=== PATIENT | male | born 1960 | race Caucasian/White ===

== ENCOUNTER 2020-03-02 15:00 | Emergency (ER) | payer OTHER ==
[~2020-03-02] VITALS: Ht 172.7 cm; Wt 74.0 kg
--- NOTE | 2020-03-02 15:39 | NUR ---
PATIENT BIB [facility] AFTER COMPLAINING OF 9/10 CP/ NITRO AND 325 ASPIRIN IN ROUTE. PAIN STILL 9/10. WHILE WAITING FOR ROOM STARTED STATING HE WANTED TO KILL HIMSELF. PATIENT IS ACTIVELY HALLUCINATING, HEARING VOICES TELLING HIM TO KILL HIMSELF. HE STATES "HE CAN'T WAIT TO GET OUT OF HERE SO HE CAN GO KILL HIMSELF." WHEN ASKED IF HE HAD A PLAN HE STATED HE WOULD JUMP IN FRONT OF TRAFFIC, SLIT HIS THROAT, SLIT HIS WRISTS, OR SHOOT HIMSELF. PATIENT IS IN A SECURE ROOM WITH A SITTER OUTSIDE DOOR WITHIN VIEW. WARM BLANKETS PROVIDED AND ALL BELONGINGS REMOVED AND LOCKED UP. PATIENT NORMALLY TAKES SEROQUEL AND PROZAC BUT HAS BEEN OFF THEM FOR ABOUT A MONTH.
[2020-03-02] MEDS ORDERED: ZIPRASIDONE 20 MG INJ IM ONE (16:00)
[2020-03-02 16:21] LABS: BASOPHILS % (AUTO) 1 % (0-1); EOSINOPHILS % (AUTO) 0 % (1-7); LYMPHOCYTES % (AUTO) 19 % (22-44); MEAN CORPUSCULAR HEMOGLOBIN 30.7 pg (27.5-34.5); MEAN CORPUSCULAR HGB CONC 32.9 g/dL (33.2-36.2); MEAN PLATELET VOLUME 7.3 fL (7.4-10.4); MONOCYTES % (AUTO) 8 % (2-9); NEUTROPHILS % (AUTO) 72 % (42-75); PLATELET COUNT 449 x10^3/uL (130-400); RED BLOOD COUNT 4.13 x10^6/uL (4.38-5.82); RED CELL DISTRIBUTION WIDTH 14.9 % (9.4-14.8)
[2020-03-02 16:28] LABS: MD NO
[2020-03-02 16:32] LABS: AMPHETAMINE SCREEN, URINE Positive (Negative); BARBITURATE SCREEN, URINE Negative (Negative); BENZODIAZEPINE SCREEN, URINE Negative (Negative); CANNABINOID SCREEN, URINE Positive (Negative); COCAINE SCREEN, URINE Negative (Negative); METHADONE SCREEN, URINE Negative (Negative); OPIATE SCREEN, URINE Negative (Negative)
[2020-03-02 16:34] LABS: ALANINE AMINOTRANSFERASE 24 U/L (12-78); ALBUMIN 3.4 g/dL (3.4-5.0); ANION GAP 7 mmol/L (5-15); CHLORIDE 112 mmol/L (98-107); CREATININE 0.96 mg/dL (0.7-1.3)
[2020-03-02 16:38] LABS: ALKALINE PHOSPHATASE 102 U/L (45-117); BILIRUBIN,TOTAL 0.3 mg/dL (0.2-1.0); SALICYLATE LEVEL 3.7 mg/dL (2.8-20.0); TROPONIN I < 0.015 ng/mL (0.000-0.045)
[2020-03-02] MEDS ORDERED: QUETIAPINE 25MG TABLET PO SCH (17:00)
[2020-03-02] MEDS ORDERED: FLUOXETINE 10 MG CAP ONE (17:06)
[2020-03-02] MEDS ORDERED: QUETIAPINE 25MG TABLET ONE (17:06)
[2020-03-02] MEDS: FLUOXETINE 10 MG CAP PO SCH (17:10)
--- NOTE | 2020-03-02 17:18 | NUR ---
PATIENTS BELONGINGS IN ONE BAG. ALTHOUGH HE STATES HE IS "TIRED AND WANTS TO KILL HIMSELF ANYWAY HE CAN" HE DOES NOT HAVE ACCESS TO ANY WEAPONS INCLUDING A GUN. MEAL TRAY ORDERED. SITTER OUTSIDE ROOM WITHIN VIEW.
--- NOTE | 2020-03-02 17:46 | NUR ---
PATIENT RESTING COMFORTABLY IN HOSPITAL BED IN A SAFETY ROOM WITH A SITTER OUTSIDE DOOR WITHIN VIEW. SAFETY DINNER TRAY PROVIDED. NO ADDITIONAL NEEDS AT THIS TIME.
--- NOTE | 2020-03-02 18:46 | NUR ---
VALERIA RN: PACKET FAXED TO [facility]
--- NOTE | 2020-03-02 18:50 | NUR ---
REPORT GIVEN TO LACEY DAVIS
--- NOTE | 2020-03-02 19:05 | NUR ---
PT IN BED, LIGHTS DIMMED. PT DENIES ANY CURRENT NEEDS OR CONCERNS, SITTER CONTINUES IN DIRECT LINE OF SIGHT.
--- NOTE | 2020-03-02 20:28 | NUR ---
PT FONDLING HIS GENITALIA IN PLAIN VIEW OF DOORWAY. VERBALLY REDIRECTED AND REMINDED TO KEEP HIS PRIVATE AREAS PRIVATE. PT VERBALLY AGREES AND APOLOGIZES AT THIS TIME. DENIES ANY FURTHER NEEDS OR CONCERNS. SITTER CONTINUES IN DIRECT LINE OF SIGHT.
[2020-03-02] MEDS: QUETIAPINE 100MG TABLET PO SCH (21:00)
[2020-03-02] MEDS ORDERED: QUETIAPINE 100MG TABLET ONE (21:05)
--- NOTE | 2020-03-02 22:32 | NUR ---
PT RESTING IN BED, EYES CLOSED, RESPIRATIONS EVEN AND UNLABORED. SITTER CONTINUES IN DIRECT LINE OF SIGHT.
--- NOTE | 2020-03-03 01:34 | NUR ---
PT RESTING IN BED, SITTER CONTINUES IN DIRECT LINE OF SIGHT.
--- NOTE | 2020-03-03 03:52 | NUR ---
PT RESTING, EYES CLOSED, RESPIRATIONS EVEN AND UNLABORED. NAD NOTED. SITTER IN DIRECT LINE OF SIGHT.
--- NOTE | 2020-03-03 04:37 | NUR ---
PT AWAKE IN BED, BUT SILENT. DENIES ANY NEEDS OR CONCERNS AT THIS TIME. SITTER CONTINUES IN DIRECT LINE OF SIGHT.
[2020-03-03] MEDS ORDERED: HALOPERIDOL 5 MG/ML ONE (06:19)
--- NOTE | 2020-03-03 06:40 | NUR ---
PT RESTING IN BED, EYES CLOSED, RESPIRATIONS EVEN AND UNLABORED. SITTER CONTINUES IN DIRECT LINE OF SIGHT.
--- NOTE | 2020-03-03 07:15 | NUR ---
Report received and care assumed. Pt in room lying on left side and awakens as soon as I enter. He asked if anyone was outside to get him and reassurances were made they were not and that he is in a safe place. He states he wants to kill himself, denies need for food, and is cold. Warm blanket provided and room cleaned of safety tray and empty milk carton. No other items beside bed and linens in room with pt and PSA and RN posted outside of room to continue to ensure pt safety from himself and falls.
[2020-03-03] MEDS ORDERED: QUETIAPINE 25MG TABLET PO SCH (08:00)
--- NOTE | 2020-03-03 09:50 | NUR ---
Pt up to bathroom with PSA yelling that he wants to kill himself. Walked back to room without further issue or escalation and provided breakfast tray.
--- NOTE | 2020-03-03 10:21 | NUR ---
Pt ate 100% of breakfast and tray removed/cleaned up room. Pt resting with lights dimmed without further c/o voiced at this time.
--- NOTE | 2020-03-03 10:37 | NUR ---
Psych staff from [facility] present at bedside for evaluation.
[2020-03-03] MEDS ORDERED: OLANZAPINE 5 MG TABLET ONE (11:09)
[2020-03-03] MEDS ORDERED: FLUOXETINE 10 MG CAP ONE (11:09)
[2020-03-03] MEDS: FLUOXETINE 10 MG CAP PO SCH (11:18)
[2020-03-03] MEDS: OLANZAPINE 5 MG TABLET PO SCH (11:18)
--- NOTE | 2020-03-03 13:13 | NUR ---
Pt resting quietly in room without complaint voiced. VS held until pt wakes up again.
--- NOTE | 2020-03-03 14:01 | NUR ---
Pt resting in room with head covered by blanket at this time, NAD noted and no changes from initial assessment noted.
--- NOTE | 2020-03-03 15:34 | NUR ---
Pt awake and provided crackers and juice for a snack as he slept through lunch. VS reassessed and found to be within baseline from shift earlier.
--- NOTE | 2020-03-03 16:50 | NUR ---
ED tray brought in to pt and new warm blanket provided per pt request.
--- NOTE | 2020-03-03 17:56 | NUR ---
All items from tray returned and disposed of. Pt ate 100% of meal tray. He states the voices "are getting worse." No PRN meds currently ordered. Will speak with MD regarding possible PRN medications.
--- NOTE | 2020-03-03 18:23 | NUR ---
Pt provided 2 apple juice cups at this time and updated to plan of care for PRN Ativan should he feel like he is going to escalate. Pt states understanding and agreement made to notify RN prior to escalation.
[2020-03-03] MEDS ORDERED: LORazepam 1MG TABLET PO PRN (18:30)
--- NOTE | 2020-03-03 18:57 | NUR ---
Report given to WEN, RN and care transferred.
--- NOTE | 2020-03-03 19:19 | NUR ---
Report received from RYAN Aguilar. This RN to assume care. Patient sleeping in hospital bed. Respirations even and unlabored. Room secured, belongings locked in cabinet. Sitter outside.
--- NOTE | 2020-03-03 20:10 | NUR ---
Patient resting in hospital bed with no complaints. Respirations even and unlabored. Room secured, belongings locked in cabinet. Sitter outside.
--- NOTE | 2020-03-03 21:40 | NUR ---
Patient resting in hospital bed with no complaints. Respirations even and unlabored. Room secured, belongings locked in cabinet. Sitter outside.
[2020-03-03] MEDS ORDERED: QUETIAPINE 100MG TABLET ONE (21:45)
[2020-03-03] MEDS: QUETIAPINE 100MG TABLET PO SCH (21:50)
--- NOTE | 2020-03-03 22:10 | NUR ---
Patient resting in hospital bed with no complaints. Respirations even and unlabored. Room secured, belongings locked in cabinet. Sitter outside.
--- NOTE | 2020-03-03 23:30 | NUR ---
Patient resting in hospital bed with no complaints. Respirations even and unlabored. Room secured, belongings locked in cabinet. Sitter outside.
--- NOTE | 2020-03-04 00:28 | NUR ---
Patient resting in hospital bed with no complaints. Respirations even and unlabored. Room secured, belongings locked in cabinet. Sitter outside.
--- NOTE | 2020-03-04 01:30 | NUR ---
Report to RYAN Fragoso. Patient care transferred.
--- NOTE | 2020-03-04 02:23 | NUR ---
PT RESTING IN BED WITH SITTER AT DOOR. PT IN SI SERCURED ROOM. PT HAS EQUAL AND UNLABORED BREATHING.
--- NOTE | 2020-03-04 03:26 | NUR ---
Break RN: Patient resting in hospital bed with no complaints. Respirations even and unlabored. Room secured, belongings locked in cabinet. Sitter outside.
--- NOTE | 2020-03-04 05:22 | NUR ---
PT RESTING IN BED WITH SITTER AT DOOR. PT IN SI SERCURED ROOM. PT HAS EQUAL AND UNLABORED BREATHING.
[2020-03-04] MEDS ORDERED: FLUOXETINE 10 MG CAP ONE (07:23)
[2020-03-04] MEDS ORDERED: OLANZAPINE 5 MG TABLET ONE (07:24)
[2020-03-04] MEDS ORDERED: LORazepam 2 MG/ML, 1ML ONE (07:25)
[2020-03-04] MEDS ORDERED: LORazepam 2 MG/ML, 1ML IM ONE (07:30)
[2020-03-04] MEDS: OLANZAPINE 5 MG TABLET PO SCH (07:44)
[2020-03-04] MEDS: FLUOXETINE 10 MG CAP PO SCH (07:44)
--- NOTE | 2020-03-04 07:46 | NUR ---
PT LEFT ROOM AND WALKED AROUND UNIT IN A DETERMINED MANNER. PT NOT LISTENING TO VERBAL DIRECTION. SECURITY WAS CALLED TO ASSIST PT BACK TO ROOM. PT BREATHING HEAVY AND FAST, HAS PULLED COVERS OVER FACE. WHEN ASKED PT WHY HE LEFT ROOM, PT STATED THERE ARE PEOPLE AFTER HIM. ERP MADE AWARE OF PT CURRENT CONDITION. ORDERS PLACED. PT COOPERATIVE WITH QUESTIONS AND VITALS. PT TOOK ORDERED MEDS. SITTER AT DOOR. WILL CONTINUE TO MONITOR.
--- NOTE | 2020-03-04 08:21 | NUR ---
PT RESTING CALMLY IN BED WITH EYES CLOSED. SITTER AT DOOR FOR OBS.
--- NOTE | 2020-03-04 09:31 | NUR ---
PT RESTING CALMLY IN BED. NO STATED NEEDS AT THIS TIME. SITTER AT DOOR FOR OBS.
--- NOTE | 2020-03-04 10:32 | NUR ---
PT RESTING IN BED WITH EYES CLSOED. PT MOVING AROUND IN BED, RESPS EVEN. SITTER AT DOOR FOR OBS.
--- NOTE | 2020-03-04 11:11 | NUR ---
PT RESTING CALMLY IN BED AT THIS TIME. PT DID EAT MEAL TRAY. NO STATED NEEDS FROM PT AT THIS TIME. WILL CONTINUE TO MONITOR.
--- NOTE | 2020-03-04 12:02 | NUR ---
PT RESTING CALMLY IN BED. NO STATED NEEDS AT THIS TIME. SITTER AT DOOR.
--- NOTE | 2020-03-04 13:07 | NUR ---
meal tray has been given to pt. pt still resting calmly in bed with eyes closed. sitter at door.
--- NOTE | 2020-03-04 13:37 | NUR ---
PT EATING MEAL TRAY. WILL CONTINUE TO MONITOR.
--- NOTE | 2020-03-04 14:26 | NUR ---
BREAK RN: PT SLEEPING ON HOSPITAL BED W/ GARAGE DOORS DOWN AND SITTER OUTSIDE ROOM FOR SAFETY. RESP EVEN AND UNLABORED, FRANK.
--- NOTE | 2020-03-04 15:41 | NUR ---
PT RESTING CALMLY IN BED, DOZING OFF AND ON. SITTER AT DOOR FOR FREQUENT OBS.
--- NOTE | 2020-03-04 16:01 | NUR ---
PT RESTING IN BED. PT GIVEN CRACKERS AND SODA PER HIS REQUEST. NO OTHER NEEDS AT THIS TIME. SITTER AT DOOR FOR OBS.
--- NOTE | 2020-03-04 17:31 | NUR ---
PT LEFT ROOM AND TOOK SHORT WALK IN HALLS. PT EASILY CORALLED BACK TO ROOM. PT GIVEN DINNER TRAY. PT ATE MEAL. IS CURRENTLY RESTING IN BED. WILL CONTINUE TO MONITOR.
--- NOTE | 2020-03-04 18:50 | NUR ---
PT RESTING CALMLY IN BED WITH EYES CLOSED. NO STATED NEEDS AT THIS TIME. SITTER AT DOOR.
--- NOTE | 2020-03-04 18:50 | NUR ---
REPORT GIVEN TO ANTHONY DAVIS.
--- NOTE | 2020-03-04 19:09 | NUR ---
report from kaycee pt in nad asked for water water given pt in nad resting in bed with sitter at doorway for observation
--- NOTE | 2020-03-04 20:20 | NUR ---
PT RESTING, EYES CLOSED, RESPIRATIONS EVEN AND UNLABORED. NAD NOTED. SITTER IN DIRECT LINE OF SIGHT.
[2020-03-04] MEDS ORDERED: QUETIAPINE 100MG TABLET ONE (20:25)
[2020-03-04] MEDS ORDERED: LORazepam 1MG TABLET ONE (20:27)
[2020-03-04] MEDS: QUETIAPINE 100MG TABLET PO SCH (20:33)
--- NOTE | 2020-03-04 20:34 | NUR ---
PT ASKING FOR JUICE AND CRACKERS, PT APPERS ANXIOUS MEDICATED PER MAR, JUICE AND CRACKERS GIVEN
--- NOTE | 2020-03-04 23:31 | NUR ---
PT RESTING, EYES CLOSED, RESPIRATIONS EVEN AND UNLABORED. NAD NOTED. SITTER IN DIRECT LINE OF SIGHT.
--- NOTE | 2020-03-05 01:04 | NUR ---
report to mandy
--- NOTE | 2020-03-05 01:35 | NUR ---
pt sleeping, chest rise and fall observed, sitter at bedside, room secure
--- NOTE | 2020-03-05 02:02 | NUR ---
BREAK RN: PT. RESTING ON BED WITH EYES CLOSED. NO DISTRESS VISIBLE. RESPIRATIONS EVEN, NON-LABORED. PT. IN SECURED ROOM WITH SITTER IN RAO.
--- NOTE | 2020-03-05 03:35 | NUR ---
pt sleeping soundly, chest rise and fall observed, sitter at bedside, no complaints
--- NOTE | 2020-03-05 04:30 | NUR ---
pt sleeping soundly, chest rise and fall observed, sitter at bedside, no complaints
--- NOTE | 2020-03-05 06:14 | NUR ---
PT CONTINUES TO SLEEP WITH NO COMPLAINTS, CHEST RISE AND FALL OBSERVED, SITTER AT BEDSIDE, ROOM SECURE
--- NOTE | 2020-03-05 06:51 | NUR ---
REPORT RECEIVED FROM JUAREZ Garcia RN
--- NOTE | 2020-03-05 08:10 | NUR ---
PT SITTING ON HOSPITAL BED WITH EYES OPEN, ALERT TO ENVIRONMENT. PT'S BREAKFAST DELIVERED. PT STATES "MY HALLUCINATIONS ARE GETTING WORSE".
[2020-03-05] MEDS ORDERED: FLUOXETINE 10 MG CAP ONE (08:28)
[2020-03-05] MEDS ORDERED: OLANZAPINE 5 MG TABLET ONE (08:28)
[2020-03-05] MEDS: FLUOXETINE 10 MG CAP PO SCH (08:44)
[2020-03-05] MEDS: OLANZAPINE 5 MG TABLET PO SCH (08:44)
--- NOTE | 2020-03-05 09:05 | NUR ---
PT PHYSICAL AND SUICDIDE REASSESSMENT. VSS. PT STATES HE STILL HAS SUICIDAL THOUGHTS AND HALLUCINATIONS. HIS PLAN WOULD BE TO CUT HIS THROAT. PT MEDICATED PER MAY.
--- NOTE | 2020-03-05 13:05 | NUR ---
PT LUNCH DELIVERED. TRINI.
--- NOTE | 2020-03-05 14:59 | NUR ---
BREAK RN: PT CALMLY LAYING ON BED WITH EYES CLOSED, NAD WITH EQUAL CHEST RISE/FALL, NO NEEDS AT THIS TIME, PT REMAINS IN SAFE ENVIRONMENT, SITTER IN VIEW.
--- NOTE | 2020-03-05 17:56 | NUR ---
PT'S DINNER TRAY DELIVERED. PT RESTING ON [facility], EYES CLOSED. WOKE TO RN IN ROOM. NAD. ALL NEEDS MET AT THIS TIME.
--- NOTE | 2020-03-05 18:55 | NUR ---
REPORT FROM KARI RN, PT RESTING ON [place]OU[place] GRIGSBYTER IN VIEW
--- NOTE | 2020-03-05 20:14 | NUR ---
pt resting on hospital bed, nad, appears comfortable, denies additional questions or needs at this time, even and unlabored respirations, si precautions in place, sitter in line of sight, wctm.
[2020-03-05] MEDS ORDERED: QUETIAPINE 100MG TABLET ONE (20:29)
[2020-03-05] MEDS: QUETIAPINE 100MG TABLET PO SCH (20:30)
--- NOTE | 2020-03-05 21:30 | NUR ---
PT RESTING ON HOSPITAL BED NADN SITTER IN SIGHT
--- NOTE | 2020-03-05 22:19 | NUR ---
PT RESTING ON HOSPITAL BED NADN SITTER IN SIGHT
--- NOTE | 2020-03-05 22:43 | NUR ---
PT RESTING ON HOSPITAL BED, NAD, NO CHANGE IN CONDITION AT THIS TIME, EYES CLOSED, EVEN AND UNLABORED RESPIRATIONS. SITTER IN LINE OF SIGHT, SI PRECAUTIONS IN PLACE, WCTM. L2K
--- NOTE | 2020-03-05 22:52 | NUR ---
[facility] CALLED TO INFORM ME THAT THEY WOULD TRY TO TAKE THIS PATIENT IN THE MORNING. 03/06
--- NOTE | 2020-03-06 02:27 | NUR ---
BEDSIDE REPORT TO SAVAGE DAVIS, PT CARE TRANSFERRED AT THIS TIME.
--- NOTE | 2020-03-06 03:32 | NUR ---
PT RESTING ON HOSPITAL BED, SITTER IN VIEW NO NEEDS AT THIS TIME
--- NOTE | 2020-03-06 04:34 | NUR ---
PT RESTING ON HOSPITAL BED, NAND, NO NEEDS SITTER REMAINS FOR SAFETY
--- NOTE | 2020-03-06 05:29 | NUR ---
PT RESTING ON HOSPITAL BED, SITTER IN VIEW NO NEEDS AT THIS TIME
--- NOTE | 2020-03-06 06:12 | NUR ---
PT RESTING ON HOSPITAL BED NADN SITTER IN VIEW
--- NOTE | 2020-03-06 08:14 | NUR ---
PT PROVIDED WITH MEAL TRAY, VSS, SI PRECAUTIONS OBSERVED. NAD NOTED
[2020-03-06] MEDS ORDERED: FLUOXETINE HCL 20 MG CAPSULE PO SCH (09:00)
[2020-03-06] MEDS ORDERED: OLANZAPINE 5 MG TABLET PO SCH (09:00)
--- NOTE | 2020-03-06 12:30 | NUR ---
PT GIVEN MEAL TRAY. NO OTHER NEEDS EXPRESSED, NAD NOTED. SI PRECAUTIONS REMAIN IN PLACE
--- NOTE | 2020-03-06 13:07 | NUR ---
THROUGHPUT NURSE: CALLED ELBA AT [facility], THE CHARGE NURSE, TO INQUIRE ABOUT ACCEPTING PT AND ELBA SAID HE WOULD CALL BACK
--- NOTE | 2020-03-06 14:53 | NUR ---
BREAK RN: PT SLEEPING ON GURNEY W/ GARAGE DOORS DOWN AND SITTER OUTSIDE ROOM FOR SAFETY. RESP EVEN AND UNLABORED, FRANK.
--- NOTE | 2020-03-06 15:19 | NUR ---
THROUGHPUT: PER ELBA ([facility]) "PT IS 2ND OR 3RD IN LINE FOR A BED SO IT'LL BE A FEW DAYS BEFORE WE CAN TAKE HIM", PSYCH SEAFOOD PACKER ([place]) AWARE & WILL FOLLOW-UP TOMORROW ON POC WITH SW TO LOOK INTO POSSIBLE BHU PLACEMENT SOONER.
--- NOTE | 2020-03-06 18:58 | NUR ---
REPORT RECIEVED FROM RYAN JUNIOR
--- NOTE | 2020-03-06 19:55 | NUR ---
PT SLEEPING IN BED, RESP EVEN/UNLABORED IN LINE OF SIGHT OF SITTER
[2020-03-06] MEDS: QUETIAPINE 100MG TABLET PO SCH (20:24)
--- NOTE | 2020-03-06 20:28 | NUR ---
pt medicated per emar, provided juice per request. pt denies any other needs, in line of sight of sitter
--- NOTE | 2020-03-06 22:19 | NUR ---
pt sleeping in bed, resp even/unlabored. in line of sight of sitter
--- NOTE | 2020-03-07 00:01 | NUR ---
PT GIVEN NEW LINENS, AMBULATED STEADY TO RESTROOM. REFUSES SHOWER AT THIS TIME AND STATES HE WILL TAKE ONE IN THE MORNING
--- NOTE | 2020-03-07 01:25 | NUR ---
pt sleeping, resp even/unlabored. in line of sight of sitter
--- NOTE | 2020-03-07 03:29 | NUR ---
PT HAD BM IN BED, PT CLEANED HIMSELF UP IN RESTROOM, AND NEW LINENS PROVIDED
--- NOTE | 2020-03-07 04:58 | NUR ---
PT ASLEEP, RESP EVEN/UNLABORED. IN LINE OF SIGHT OF SITTER
--- NOTE | 2020-03-07 06:09 | NUR ---
pt sleeping in bed. resp even/unlabored. in line of sight of sitter
--- NOTE | 2020-03-07 06:33 | NUR ---
PT AMBULATED TO RESTROOM, NO OTHER NEEDS AT THIS TIME
--- NOTE | 2020-03-07 07:00 | NUR ---
assumed care of pt. report from Chitra DAVIS pt here on legal hold for SI and hx of schizophrenia. per report, pt has been having visual and auditory hallucinations and has a plan foor ending his life. pt is currently sleeping in position of comfort in no apparent distress. room secure. sitter at beside pt is currenty awaiting placement at [facility]
--- NOTE | 2020-03-07 07:37 | NUR ---
pt conitnues sleeping. meal tray has been ordered
--- NOTE | 2020-03-07 08:00 | NUR ---
no changes. pt sleeping. room secure. sitter present for safety
--- NOTE | 2020-03-07 08:49 | NUR ---
wrong tray has been delivered. awaiting delivery of correct meal tray
[2020-03-07 08:55] VITALS: BP 111/65
--- NOTE | 2020-03-07 08:55 | NUR ---
attempted to deliver meal tray, pt declines at this time. pt states that he wants to sleep more but that he will eat it later. no resp distress pt reports that he is still suicidal. reports that he has a plan of "cutting his throat" because "it's fast" pt admits to visual and auditory hallucinations. resting in position of comfort on hospital bed. room secure. sitter present for safety
--- NOTE | 2020-03-07 09:11 | NUR ---
pt has been accepted to [facility]
--- NOTE | 2020-03-07 09:42 | NUR ---
pt continues sleeping in position of comfort. room secure. sitter present for safety
--- NOTE | 2020-03-07 09:53 | NUR ---
report to Lia DAVIS
--- NOTE | 2020-03-07 09:54 | NUR ---
PT REPORT FROM RYAN HAZEL. PT CARE TO BE ASSUMED.
--- NOTE | 2020-03-07 10:00 | NUR ---
CHART REVIEWED: MED REC NOT COMPLETED, 0900 MEDS NOT GIVEN.
--- NOTE | 2020-03-07 10:27 | NUR ---
PT NOT LISTED IN OMNICELL; WILL CONTACT PHARMACY
--- NOTE | 2020-03-07 10:29 | NUR ---
[facility] HERE FOR PT TRANSPORT.
--- NOTE | 2020-03-07 10:30 | NUR ---
ALL PT BELONGINGS TRANSFERRED TO [facility]. PT AMBULATORY W/ STEADY GAIT. PT DISCHARGED TO [facility].
== END 2020-03-07 10:38 ==
LOC: ED 15:43
DX: R45.851 Suicidal ideations (principal); F23 Brief psychotic disorder; R07.89 Other chest pain; F15.10 Other stimulant abuse, uncomplicated; F12.10 Cannabis abuse, uncomplicated; F17.210 Nicotine dependence, cigarettes, uncomplicated; Z72.9 Problem related to lifestyle, unspecified
CPT/HCPCS: 36415; 71045; 80053; 80299; 80307; 80320; 80329; 84443; 84484; 85025; 93005; 96372; 99285; 99406; J2060; G0480

== ENCOUNTER 2020-04-17 19:18 | Emergency (ER) | payer SELFPAY ==
[~2020-04-17] VITALS: Ht 172.7 cm; Wt 79.0 kg
[2020-04-17 19:23] VITALS: BP 96/41
--- NOTE | 2020-04-17 19:47 | NUR ---
PT WAS SEEN AT [facility] THIS AM AND HAS BLOOD CLOT IN LUNG AND WAS PRESCRIBED UNKNOWN BLOOD THINNER THAT HE DIDNT FILL. VSS. EKG DONE AT BEDSIDE. MED AT BEDSIDE FOR EVALUATION
[2020-04-17] MEDS ORDERED: SODIUM CHLORIDE FLUSH 10ML SYR IVF ONE (20:00)
--- NOTE | 2020-04-17 20:05 | NUR ---
BREAK RN: ATTEMPTED PIV X 2 WITH NO SUCCESS.
[2020-04-17 20:46] LABS: ALBUMIN 3.8 g/dL (3.4-5.0); ANION GAP 9 mmol/L (5-15); CALCIUM 9.3 mg/dL (8.5-10.1); CHLORIDE 109 mmol/L (98-107); CREATININE 1.25 mg/dL (0.7-1.3)
[2020-04-17 20:48] LABS: INTERNATIONAL NORMALIZED RATIO 1.32 (0.93-1.1)
[2020-04-17 20:49] LABS: BASOPHILS % (AUTO) 1 % (0-1); EOSINOPHILS % (AUTO) 0 % (1-7); LYMPHOCYTES % (AUTO) 10 % (22-44); MEAN CORPUSCULAR HEMOGLOBIN 31.3 pg (27.5-34.5); MEAN CORPUSCULAR HGB CONC 34.1 g/dL (33.2-36.2); MEAN PLATELET VOLUME 7.8 fL (7.4-10.4); MONOCYTES % (AUTO) 7 % (2-9); NEUTROPHILS % (AUTO) 82 % (42-75); PLATELET COUNT 325 x10^3/uL (130-400); RED BLOOD COUNT 4.56 x10^6/uL (4.38-5.82); RED CELL DISTRIBUTION WIDTH 14.1 % (9.4-14.8)
[2020-04-17 20:50] LABS: TROPONIN I 0.029 ng/mL (0.000-0.045)
[2020-04-17 20:54] LABS: MD NO
[2020-04-18] MEDS ORDERED: ATOR20TA37 PO (22:15)
[2020-04-18] MEDS ORDERED: QUET50TA5 PO (22:15)
[2020-04-18] MEDS ORDERED: FLUO10CA13 PO (22:15)
[2020-04-18] MEDS ORDERED: NITR0.6T4 SL (22:15)
== END 2020-04-17 21:32 | disposition home or self-care (01) ==
LOC: ED 20:00
DX: R07.2 Precordial pain (principal); I26.99 Other pulmonary embolism without acute cor pulmonale; R06.02 Shortness of breath; R07.89 Other chest pain; F41.9 Anxiety disorder, unspecified; E11.9 Type 2 diabetes mellitus without complications; Z79.01 Long term (current) use of anticoagulants
CPT/HCPCS: 36415; 71045; 80048; 82040; 83735; 84484; 85025; 85610; 93005; 99285

== ENCOUNTER 2020-04-18 21:36 | Emergency (ER) | payer SELFPAY ==
[~2020-04-18] VITALS: Ht 172.7 cm; Wt 78.0 kg
--- NOTE | 2020-04-18 22:08 | NUR ---
KIRSTY, CC OF PANIC ATTACK FROM [facility] DESCRIBED SHARP 8.5/10 IN CENTER CHEST. PT IS HOMELESS AND WAS WALKING AROUND FOR ABOUT 15 MIN WITHOUT BEING ABLE TO FIND ANYONE TO ASK FOR HELP. PT WAS GIVEN 324 ASPIRIN AND 1 NITRO TAB FROM EMS AND PAIN REDUCED TO 5.5/10, VSS FOR EMS WITH LAST BP BEING 112/70. PT STATES HE WAS DIAGNOSED WITH A BLOOD CLOT IN HIS LUNG A FEW WEEKS AGO AND SPIT UP BLOOD ONE TIME TODAY, HE IS NOT ON BLOOD THINNERS AND IS UNSURE IF HE IS SUPPOSED TO BE. PT ALSO STATES HIS MEDICATIONS WERE STOLEN A FEW WEEKS AGO.
[2020-04-18] MEDS ORDERED: ATOR20TA37 PO (22:15)
[2020-04-18] MEDS ORDERED: QUET50TA5 PO (22:15)
[2020-04-18] MEDS ORDERED: NITR0.6T4 SL (22:15)
[2020-04-18] MEDS ORDERED: FLUO10CA13 PO (22:15)
[2020-04-18 22:19] LABS: BASOPHILS % (AUTO) 1 % (0-1); EOSINOPHILS % (AUTO) 1 % (1-7); LYMPHOCYTES % (AUTO) 15 % (22-44); MEAN CORPUSCULAR HEMOGLOBIN 31.2 pg (27.5-34.5); MEAN CORPUSCULAR HGB CONC 33.9 g/dL (33.2-36.2); MEAN PLATELET VOLUME 7.6 fL (7.4-10.4); MONOCYTES % (AUTO) 8 % (2-9); NEUTROPHILS % (AUTO) 75 % (42-75); PLATELET COUNT 277 x10^3/uL (130-400); RED BLOOD COUNT 4.42 x10^6/uL (4.38-5.82); RED CELL DISTRIBUTION WIDTH 14.2 % (9.4-14.8)
[2020-04-18 22:20] LABS: MD NO
[2020-04-18 22:32] LABS: ALBUMIN 3.7 g/dL (3.4-5.0); ANION GAP 8 mmol/L (5-15); CALCIUM 9.1 mg/dL (8.5-10.1); CHLORIDE 110 mmol/L (98-107); CREATININE 1.16 mg/dL (0.7-1.3)
[2020-04-18 22:35] LABS: TROPONIN I < 0.015 ng/mL (0.000-0.045)
[2020-04-18 23:27] VITALS: BP 119/77
== END 2020-04-18 23:29 | disposition home or self-care (01) ==
LOC: ED 22:30
DX: R07.89 Other chest pain (principal); E78.5 Hyperlipidemia, unspecified; F17.210 Nicotine dependence, cigarettes, uncomplicated
CPT/HCPCS: 36415; 71045; 80048; 82040; 84484; 85025; 93005; 99285; 99406

== ENCOUNTER 2020-04-20 14:54 | Emergency (ER) | payer MEDICAID ==
[~2020-04-20] VITALS: Ht 167.6 cm; Wt 68.2 kg
[~2020-04-20 14:54] MED LIST: ATOR20TA37 PO; FLUO10CA13 PO; NITR0.6T4 SL; QUET50TA5 PO
--- NOTE | 2020-04-20 15:12 | NUR ---
PT CLOOTHING AND BELONGING'S PLACED IN A BAG AND SECURED IN LOCKER. PT IN SECURE ROOM. SITTER TO SUPERVISE. DIET TRAY ORDERED FOR PT. BLANKETS PROVIDED.
--- NOTE | 2020-04-20 15:20 | NUR ---
SITTER IN VIEW OF PT. FOOD TRAY PROVIDED.
[2020-04-20] MEDS ORDERED: OLANZAPINE ODT 10MG PO ONE (15:30)
--- NOTE | 2020-04-20 15:35 | NUR ---
PT UP TO SIDE OF BED TO VOID IN URINAL. UA OBTAINED.
--- NOTE | 2020-04-20 16:05 | NUR ---
SITTER IN VIEW OF PT. PT RESTING WITH EYES CLOSED.
--- NOTE | 2020-04-20 16:45 | NUR ---
PT AMBULATED TO BR INDEPENDENTLY. LARGE BM NOTED. PT MOVED TO RM 3. SITTER IN VIEW OF PT.
--- NOTE | 2020-04-20 16:52 | NUR ---
sitter at doorway
--- NOTE | 2020-04-20 16:52 | NUR ---
report recived from cee blackwell
--- NOTE | 2020-04-20 17:43 | NUR ---
UA SENT TO LAB
--- NOTE | 2020-04-20 18:00 | NUR ---
pt resting in [facility], no needs at this time. sitter at doorway
[2020-04-20 18:05] LABS: AMPHETAMINE SCREEN, URINE Positive (Negative); BARBITURATE SCREEN, URINE Negative (Negative); BENZODIAZEPINE SCREEN, URINE Negative (Negative); CANNABINOID SCREEN, URINE Positive (Negative); COCAINE SCREEN, URINE Negative (Negative); METHADONE SCREEN, URINE Negative (Negative); OPIATE SCREEN, URINE Negative (Negative)
[2020-04-20 18:07] LABS: BASOPHILS % (AUTO) 1 % (0-1); EOSINOPHILS % (AUTO) 0 % (1-7); LYMPHOCYTES % (AUTO) 12 % (22-44); MD NO; MEAN CORPUSCULAR HEMOGLOBIN 31.1 pg (27.5-34.5); MEAN CORPUSCULAR HGB CONC 33.8 g/dL (33.2-36.2); MONOCYTES % (AUTO) 10 % (2-9); NEUTROPHILS % (AUTO) 77 % (42-75); PLATELET COUNT 328 x10^3/uL (130-400); RED BLOOD COUNT 4.03 x10^6/uL (4.38-5.82); RED CELL DISTRIBUTION WIDTH 14.2 % (9.4-14.8)
[2020-04-20 18:20] LABS: ALANINE AMINOTRANSFERASE 43 U/L (12-78); ALBUMIN 3.5 g/dL (3.4-5.0); ANION GAP 9 mmol/L (5-15); CALCIUM 8.5 mg/dL (8.5-10.1); CHLORIDE 106 mmol/L (98-107); CREATININE 1.21 mg/dL (0.7-1.3); SALICYLATE LEVEL 2.3 mg/dL (2.8-20.0)
[2020-04-20 18:22] LABS: ALKALINE PHOSPHATASE 118 U/L (45-117); BILIRUBIN,TOTAL 0.9 mg/dL (0.2-1.0); TOTAL PROTEIN 6.8 g/dL (6.4-8.2)
--- NOTE | 2020-04-20 19:36 | NUR ---
TP: FAXED TO [facility]. LUZ DAVIS WILL LOOK AT PACKET
--- NOTE | 2020-04-20 19:42 | NUR ---
pt resting in [facility], no needs at this time, sitter at doorway
--- NOTE | 2020-04-20 20:47 | NUR ---
pt resting in [facility], no needs at this time.sitter at doorway
--- NOTE | 2020-04-20 21:29 | NUR ---
TP: SPOKE WITH LUZ DAVIS FROM [facility]. TRYING TO VERIFY INSURANCE. OK TO FAX PACKET TO OTHER FACILITIES
--- NOTE | 2020-04-20 21:38 | NUR ---
TP: PACKET [facility]ED TO [facility]
--- NOTE | 2020-04-20 21:55 | NUR ---
pt resting in gurney, resp even and unlabored. sitter at doorway
--- NOTE | 2020-04-20 22:12 | NUR ---
TP: PT REFUSED BY [facility] DUE TO INSURANCE. PER [facility] PT IS SELF PAY
[2020-04-20 22:16] VITALS: BP 121/66
--- NOTE | 2020-04-20 22:34 | NUR ---
TP:REFUSED BY [facility]
--- NOTE | 2020-04-21 00:09 | NUR ---
PT RESTING IN [facility], NO NEEDS AT THIS TIME. SITTER AT DOORWAY
--- NOTE | 2020-04-21 00:59 | NUR ---
PT SLEEPING, RESP EVEN AND UNLABORED. SITTER AT DOORWAY
--- NOTE | 2020-04-21 02:08 | NUR ---
PT SLEEPING, RESP EVEN AND UNLABORED. SITTER AT DOORWAY
--- NOTE | 2020-04-21 03:07 | NUR ---
REPORT GIVEN TO DEAN DAVIS
--- NOTE | 2020-04-21 03:09 | NUR ---
REPORT RECIEVED FROM RYAN MARQUIS. PT SLEEPING, RESP EVEN/UNLABORED, IN LINE OF SIGHT OF HERMILA
--- NOTE | 2020-04-21 04:19 | NUR ---
PT SLEEPING, RESP EVEN/UNLABORED, IN LINE OF SIGHT OF SITTER
--- NOTE | 2020-04-21 05:18 | NUR ---
ATTEMPTED TO MOVE PATIENT FROM [place] TO BED AND PT KEPT SAYING "IM HALLUCINATING TOO MUCH, I DONT WANT TO MOVE, IM FINE RIGHT HERE". WILL ATTEMPT AT A LATER TIME
--- NOTE | 2020-04-21 07:01 | NUR ---
ASSUMED CARE OF PATIENT. REPORT TAKEN FROM DEAN. PSA AT BEDSIDE. PT RESTING ON RJACOB. NAD. WILL CONTINUE TO MONITOR
--- NOTE | 2020-04-21 07:17 | NUR ---
PT RESTING ON [place]. STATES "MY HANDS ARE SWOLLEN AND I HAVE BLISTERS ON MY FEET THAT HURT. I JUST WANT TO LAY HERE AND BE LEFT ALONE". PT W/IN VISION OF PSA.
--- NOTE | 2020-04-21 07:34 | NUR ---
PT STATES "I DONT WANT ANY MEDICATIONS. I DONT WANT ANYTHING TO TREAT THE CLOT IN MY LUNGS. I JUST WANT TO ."
--- NOTE | 2020-04-21 09:23 | NUR ---
UNABLE TO TAKE VITAL SIGNS AT THIS TIME. PT STATING "JUST LET ME SLEEP". WILL MONITOR AND REATTEMPT
--- NOTE | 2020-04-21 10:18 | NUR ---
PSA AT BEDSIDE. PT STATES "I JUST WANT TO " REFUSING FOOD, VITAL SIGNS AND CARE AT THIS TIME. RN ATTEMPTED TO CLEAN BILATERAL FOOT WOUNDS. PER PT. "PLEASE WAIT. IM TIRED AND I JUST WANT TO SLEEP AT THIS TIME.
[2020-04-21] MEDS ORDERED: QUETIAPINE 25MG TABLET PO SCH (12:30)
--- NOTE | 2020-04-21 13:14 | NUR ---
PT SITTING UP IN BED EATING LUNCH. PT WILLING TO TAKE ORDERED MEDICATIONS AT THIS TIME. PSA W/IN VISIBLE DISTANCE. NAD.
[2020-04-21] MEDS ORDERED: QUETIAPINE 25MG TABLET ONE (13:17)
--- NOTE | 2020-04-21 14:11 | NUR ---
PT SLEEPING ON GURNEY. SOFT DIET TRAY ORDERED PT STATES HE HAS NO TEETH AND HIS GUMS ARE PAINFUL. SOFT SNACKS PROVIDED. PSA W/I VISIBLE DISTANCE
--- NOTE | 2020-04-21 14:27 | NUR ---
Note disha in EDM - 04/21/20 at 1428 by BNICHOLS TASK RN: ROOM SECURED. PT REMAINS ON MONITORS. SITTER REMAINS AT BEDSIDE. PT REMAINS LETHARGIC AFTER PROGRAM MANUFACTURING LEADER AT [facility]. WILL HOLD OFF ON POTASSIUM PILLS AT THIS TIME.
--- NOTE | 2020-04-21 14:28 | NUR ---
TASK RN: PT RESTING ON GURNEY. MARIE. SITTER REMAINS AT BEDSIDE. ROOM REMAINS SECURE. PT PROVIDED W/ SI LUNCH TRAY.
--- NOTE | 2020-04-21 15:15 | NUR ---
PT PLACED ON HOSPITAL BED. WARM BLANKETS PROVIDED. PT TEARFUL STATING "I HAVE BEEN HOMELESS FOR 17 YEARS LIVING OUT OF GARBAGE CANS. I JUST CANT TAKE IT ANYMORE".
--- NOTE | 2020-04-21 15:48 | NUR ---
PT RESTING ON HOSPITAL BED. CALL LIGHT W/IN REACH. PSA W/IN VISUAL DISTANCE
[2020-04-21] MEDS ORDERED: maalox/diphenh/lido/sucralfate 5 ML PO PRN (16:30)
--- NOTE | 2020-04-21 17:23 | NUR ---
PT SLEEPING ON HOSPITAL BED. PSA W/IN VISUAL DISTANCE. CALL LIGHT W/IN REACH
--- NOTE | 2020-04-21 17:27 | NUR ---
PER AMAIRANI PT NAME INCORRECT IN SYSTEM POSSIBLY CAUSING INSURANCE DENIAL AT ADMITTING FACILITIES. ADMITTING TO UPDATE NAME. BUSINESS SERVICES ASSOCIATE TO RESUBMIT REFERRAL REQUEST WITH UPDATED INFORMATION
[2020-04-21 18:26] LABS: MICROSCOPIC NOT IND
--- NOTE | 2020-04-21 18:29 | NUR ---
PT SITTING UP ON HOSPITAL BED EATING DINNER AND WATCHING TV. PSA W/IN VISUAL DISTANCE.
--- NOTE | 2020-04-21 19:01 | NUR ---
REPORT GIVEN TO NURA DAVIS
--- NOTE | 2020-04-21 19:08 | NUR ---
RECEIVED REPORT FROM ROBERT DAVIS. ASSUMING CARE AT THIS TIME. PT SLEEPING ON HOSPITAL BED. RESP EVEN AND UNLABORED. NADN. PT IN SIGHT OF SITTER. ROOM SECURE.
--- NOTE | 2020-04-21 19:27 | NUR ---
REPORT GIVEN TO LIMA DAVIS IN U. PT RTG ROOM [id number]
[2020-04-21] MEDS ORDERED: CEPHALEXIN 500 MG CAPSULE ONE (19:32)
[2020-04-21] MEDS ORDERED: CEPHALEXIN 500 MG CAPSULE PO SCH (21:00)
[2020-04-21] MEDS ORDERED: QUETIAPINE 100MG TABLET PO SCH (21:00)
[2020-04-22] MEDS ORDERED: PROP20TA PO (09:24)
[2020-04-22] MEDS ORDERED: FLUO20CA19 PO (09:24)
[2020-04-22] MEDS ORDERED: QUET300T5 PO (09:25)
[2020-04-22] MEDS ORDERED: ATOR10TA9 PO (09:31)
== END 2020-04-21 19:46 ==
LOC: ED 15:17
DX: F15.151 Other stimulant abuse with stimulant-induced psychotic disorder with hallucinations (principal); Z20.822 Contact with and (suspected) exposure to COVID-19; R45.851 Suicidal ideations; R44.1 Visual hallucinations; E78.5 Hyperlipidemia, unspecified; F17.200 Nicotine dependence, unspecified, uncomplicated; Z91.14 Patient's other noncompliance with medication regimen; Z86.711 Personal history of pulmonary embolism; Z72.9 Problem related to lifestyle, unspecified
CPT/HCPCS: 36415; 71045; 80053; 80299; 80307; 80320; 80329; 81003; 85025; 87426; 99285; G0480

== ENCOUNTER 2020-04-21 19:20 | Inpatient (IN) | payer MEDICAID ==
[~2020-04-21] VITALS: Ht 172.7 cm; Wt 75.9 kg
[2020-04-21 19:50] VITALS: BP 112/75
[2020-04-21] MEDS ORDERED: BISACODYL 10 MG SUPP PR PRN (20:00)
[2020-04-21] MEDS ORDERED: ONDANSETRON ODT 4 MG PO PRN (20:00)
[2020-04-21] MEDS ORDERED: POLYETHYLENE GLYCOL 17 GM PACKET PO PRN (20:00)
[2020-04-21] MEDS ORDERED: DOCUSATE 100 MG CAPSULE PO PRN (20:00)
[2020-04-21] MEDS ORDERED: QUETIAPINE 100MG TABLET PO SCH (21:00)
[2020-04-21] MEDS: ACETAMINOPHEN 325 MG TABLET PO PRN (21:18)
[2020-04-21] MEDS ORDERED: CEPHALEXIN 500 MG CAPSULE PO SCH (22:30)
[2020-04-22] MEDS: CEPHALEXIN 500 MG CAPSULE PO SCH ×2 (00:38→05:35)
[2020-04-22 01:51] VITALS: BP 112/75
[2020-04-22 05:57] LABS: CHOL/HDL RATIO 2.2; FREE T4 (FREE THYROXINE) 1.03 ng/dL (0.76-1.46); LDL/HDL RATIO 0.9 (0.5-3.0)
[2020-04-22 07:32] VITALS: BP 114/72
[2020-04-22] MEDS ORDERED: PROP20TA PO (09:24)
[2020-04-22] MEDS ORDERED: FLUO20CA19 PO (09:24)
[2020-04-22] MEDS ORDERED: QUET300T5 PO (09:25)
[2020-04-22] MEDS ORDERED: ATOR10TA9 PO (09:31)
[2020-04-22] MEDS ORDERED: AMOXICILLIN/CLAV 875-125MG TABLET PO SCH (12:30)
[2020-04-22] MEDS ORDERED: NITROGLYCERIN 0.4 MG BOTTLE (25 TABS) SL PRN (12:30)
[2020-04-22] MEDS: AMOXICILLIN/CLAV 875-125MG TABLET PO SCH ×2 (12:35→20:30)
[2020-04-22 19:15] VITALS: BP 126/85
[2020-04-22] MEDS: ATORVASTATIN 10 MG TABLET PO SCH (20:29)
[2020-04-22] MEDS: ACETAMINOPHEN 325 MG TABLET PO PRN (20:30)
[2020-04-22] MEDS: QUETIAPINE 100MG TABLET PO SCH (20:30)
[2020-04-23 07:34] VITALS: BP 110/79
[2020-04-23] MEDS: FLUOXETINE HCL 20 MG CAPSULE PO SCH (08:37)
[2020-04-23] MEDS: AMOXICILLIN/CLAV 875-125MG TABLET PO SCH ×2 (08:37→20:42)
[2020-04-23 19:30] VITALS: BP 107/74
[2020-04-23] MEDS: ATORVASTATIN 10 MG TABLET PO SCH (20:42)
[2020-04-23] MEDS: QUETIAPINE 100MG TABLET PO SCH (20:42)
[2020-04-23] MEDS: ACETAMINOPHEN 325 MG TABLET PO PRN (20:42)
[2020-04-24 07:48] VITALS: BP 142/90
[2020-04-24] MEDS: FLUOXETINE HCL 20 MG CAPSULE PO SCH (09:23)
[2020-04-24] MEDS: AMOXICILLIN/CLAV 875-125MG TABLET PO SCH ×2 (09:23→20:43)
[2020-04-24] MEDS: ACETAMINOPHEN 325 MG TABLET PO PRN (09:24)
[2020-04-24 19:35] VITALS: BP 129/82
[2020-04-24] MEDS: ATORVASTATIN 10 MG TABLET PO SCH (20:43)
[2020-04-24] MEDS: QUETIAPINE 100MG TABLET PO SCH (20:44)
[2020-04-25 07:45] VITALS: BP 123/79
[2020-04-25] MEDS: AMOXICILLIN/CLAV 875-125MG TABLET PO SCH ×2 (09:23→20:33)
[2020-04-25] MEDS: FLUOXETINE HCL 20 MG CAPSULE PO SCH (09:23)
[2020-04-25] MEDS: RIVAROXABAN 15 MG TABLET PO SCH (17:02)
[2020-04-25 19:27] VITALS: BP 120/76
[2020-04-25] MEDS: ACETAMINOPHEN 325 MG TABLET PO PRN (20:33)
[2020-04-25] MEDS: ATORVASTATIN 10 MG TABLET PO SCH (20:34)
[2020-04-25] MEDS: QUETIAPINE 100MG TABLET PO SCH (20:34)
[2020-04-26 06:25] LABS: CREATININE 0.89 mg/dL (0.7-1.3)
[2020-04-26] MEDS: FLUOXETINE HCL 20 MG CAPSULE PO SCH (07:50)
[2020-04-26] MEDS: RIVAROXABAN 15 MG TABLET PO SCH ×2 (07:50→16:44)
[2020-04-26] MEDS: AMOXICILLIN/CLAV 875-125MG TABLET PO SCH ×2 (07:50→20:25)
[2020-04-26 08:00] VITALS: BP 105/69
[2020-04-26 19:09] VITALS: BP 110/77
[2020-04-26] MEDS: ACETAMINOPHEN 325 MG TABLET PO PRN (20:25)
[2020-04-26] MEDS: ATORVASTATIN 10 MG TABLET PO SCH (20:25)
[2020-04-26] MEDS: QUETIAPINE 100MG TABLET PO SCH (20:26)
[2020-04-27 07:15] VITALS: BP 112/63
[2020-04-27] MEDS: RIVAROXABAN 15 MG TABLET PO SCH ×2 (07:40→16:58)
[2020-04-27] MEDS: FLUOXETINE HCL 20 MG CAPSULE PO SCH (07:40)
[2020-04-27] MEDS: AMOXICILLIN/CLAV 875-125MG TABLET PO SCH ×2 (07:40→20:23)
[2020-04-27 19:30] VITALS: BP 114/77
[2020-04-27] MEDS: ATORVASTATIN 10 MG TABLET PO SCH (20:23)
[2020-04-27] MEDS: QUETIAPINE 100MG TABLET PO SCH (20:23)
[2020-04-27] MEDS: ACETAMINOPHEN 325 MG TABLET PO PRN (20:24)
[2020-04-28 07:29] VITALS: BP 111/73
[2020-04-28] MEDS: FLUOXETINE HCL 20 MG CAPSULE PO SCH (07:38)
[2020-04-28] MEDS: AMOXICILLIN/CLAV 875-125MG TABLET PO SCH ×2 (07:38→20:29)
[2020-04-28] MEDS: RIVAROXABAN 15 MG TABLET PO SCH ×2 (07:38→17:02)
[2020-04-28 19:41] VITALS: BP 118/74
[2020-04-28] MEDS: QUETIAPINE 100MG TABLET PO SCH (20:29)
[2020-04-28] MEDS: ATORVASTATIN 10 MG TABLET PO SCH (20:30)
[2020-04-28] MEDS: ACETAMINOPHEN 325 MG TABLET PO PRN (20:56)
[2020-04-29 07:49] VITALS: BP 118/77
[2020-04-29] MEDS: FLUOXETINE HCL 20 MG CAPSULE PO SCH (08:56)
[2020-04-29] MEDS: RIVAROXABAN 15 MG TABLET PO SCH ×2 (08:56→17:10)
[2020-04-29] MEDS: AMOXICILLIN/CLAV 875-125MG TABLET PO SCH (08:56)
[2020-04-29 19:30] VITALS: BP 113/70
[2020-04-29] MEDS: ATORVASTATIN 10 MG TABLET PO SCH (20:34)
[2020-04-29] MEDS: ACETAMINOPHEN 325 MG TABLET PO PRN (20:35)
[2020-04-29] MEDS: QUETIAPINE 100MG TABLET PO SCH (20:35)
[2020-04-30 07:35] VITALS: BP 114/71
[2020-04-30] MEDS: RIVAROXABAN 15 MG TABLET PO SCH ×2 (09:19→17:48)
[2020-04-30] MEDS: FLUOXETINE HCL 20 MG CAPSULE PO SCH (09:19)
[2020-04-30 19:38] VITALS: BP 114/72
[2020-04-30] MEDS: ACETAMINOPHEN 325 MG TABLET PO PRN (20:48)
[2020-04-30] MEDS: ATORVASTATIN 10 MG TABLET PO SCH (20:48)
[2020-04-30] MEDS: QUETIAPINE 100MG TABLET PO SCH (20:48)
[2020-05-01 05:27] LABS: CREATININE 0.86 mg/dL (0.7-1.3)
[2020-05-01 07:36] VITALS: BP 123/75
[2020-05-01] MEDS: FLUOXETINE HCL 20 MG CAPSULE PO SCH (08:34)
[2020-05-01] MEDS: RIVAROXABAN 15 MG TABLET PO SCH ×2 (08:34→17:24)
[2020-05-01 19:44] VITALS: BP 155/84
[2020-05-01 19:46] VITALS: BP 119/67
[2020-05-01] MEDS: ATORVASTATIN 10 MG TABLET PO SCH (20:34)
[2020-05-01] MEDS: QUETIAPINE 100MG TABLET PO SCH (20:34)
[2020-05-02 07:43] VITALS: BP 122/84
[2020-05-02] MEDS: RIVAROXABAN 15 MG TABLET PO SCH (08:38)
[2020-05-02] MEDS: FLUOXETINE HCL 20 MG CAPSULE PO SCH (08:38)
[2020-05-02] MEDS ORDERED: QUET400T4 PO (09:31)
[2020-05-02] MEDS ORDERED: FLUO20CA19 PO (09:31)
[2020-05-02] MEDS ORDERED: ATOR10TA9 PO (09:33)
[2020-05-02] MEDS ORDERED: RIVA10TA2 PO (09:34)
[2020-05-15] MEDS ORDERED: RIVAROXABAN 20 MG TABLET PO SCH (08:00)
== END 2020-05-02 09:50 | disposition home or self-care (01) | DRG 885 ==
LOC: 3E 19:50
PROVIDERS: ADMIT Psychiatry & Neurology Psychosomatic Medicine; ATTEND Psychiatry & Neurology Psychosomatic Medicine
DX: F20.0 Paranoid schizophrenia (principal); J44.9 Chronic obstructive pulmonary disease, unspecified; F32.9 Major depressive disorder, single episode, unspecified; F17.210 Nicotine dependence, cigarettes, uncomplicated; Z86.711 Personal history of pulmonary embolism
CPT/HCPCS: 36415; 80061; 82140; 82565; 84439; 84520